=== PATIENT | male | born 1965 | race African-American/Black ===

== ENCOUNTER → 2016-10-15 | Outpatient (CLI) | payer BC ==
[~2016-10-15] MED LIST: AMLODIPINE BESYL5 MG PO; FLONASE 0.05% N16 GM; LIPITOR TAB 2020 MG PO; LISINOPRIL40 MG PO; NORCO 5-325 TA1 EACH PO; PREPARATION H26 GM PR
== END ==
LOC: OPSV2 10:22
DX: Z01.810 Encounter for preprocedural cardiovascular examination (principal); K62.89 Other specified diseases of anus and rectum; I10 Essential (primary) hypertension; R01.1 Cardiac murmur, unspecified
CPT/HCPCS: 93005

== ENCOUNTER → 2016-10-22 | Day surgery (SDC) | payer BC, OTHER | END | disposition home or self-care (01) | LOC: OR 06:15 | PROVIDERS: Surgery | PROC: 0DBP8ZZ Excision of Rectum, Via Natural or Artificial Opening Endoscopic (ICD-10-PCS; principal; 2016-10-22 07:45) | DX: D12.9 Benign neoplasm of anus and anal canal (principal); K64.8 Other hemorrhoids; K21.9 Gastro-esophageal reflux disease without esophagitis; I10 Essential (primary) hypertension; E78.5 Hyperlipidemia, unspecified; Z79.899 Other long term (current) drug therapy | CPT/HCPCS: J0694; J2250; J3010; J7030; J7050; J7120 ==

== ENCOUNTER → 2016-11-05 | Outpatient (CLI) | payer BC | LOC: HEART 5 10-23 09:00 | DX: R07.9 Chest pain, unspecified (principal); I51.7 Cardiomegaly; I07.1 Rheumatic tricuspid insufficiency; I77.819 Aortic ectasia, unspecified site | CPT/HCPCS: 78452; 93306; A9502 ==